=== PATIENT | female | born 1975 | race Caucasian/White ===

== ENCOUNTER → 2018-08-26 | Outpatient (CLI) | payer OTHER ==
[~2018-08-26] MED LIST: ESTR2TAB26 PO; LEVO-3 PO; PROG1.3G2 PV
--- NOTE | 2018-08-26 16:15 | RADIOLOGY IMAGING REPORT ---
FACILITY: [facility] [place] PATIENT NAME: Fatou Armenta : 1975 MR: [id number] V: [id number] EXAM DATE: ORDERING PHYSICIAN: MADDI ACUÑA TECHNOLOGIST: Location: [facility] Patient: Fatou Armenta : 1975 Visit/Account:[id number] Date of Sevice: 08/26/2018 ADDENDUM #1 The endometrial double thickness is 1.06 cm not millimeters. Report Dictated By: Stephanie Benson MD at 08/27/2018 10:36 AM Report E-Signed By: Stephanie Benson MD at 08/27/2018 10:36 AM ORIGINAL REPORT [facility] TRANSVAGINAL NON-OB HISTORY: ENCOUNTER FOR OTHER PROCREATIVE MANAGEMENT TECHNIQUE: Transvaginal ultrasound pelvis. COMPARISON: None. FINDINGS: Uterus: ; 27.5 cm length x 3.7 cm AP x cm transverse. Myometrium: Limited sagittal views of the uterus are grossly unremarkable. Endometrium: Unremarkable; double thickness 1.06 mm. Cervix: Grossly negative. Ovaries: Right - 2.23 x 1.73 x 2.2 cm. Two follicles were measured in the right ovary measuring 5.9 mm, 4 mm and 7.8 mm Left - 1.6 x 1.91 x 0.95 cm. Two follicles were measured in the left ovary measuring 5.4 mm and 6.5 mm Blood flow is documented in each ovary by duplex Doppler ultrasound. Adnexa: Grossly unremarkable. Free pelvic fluid: None. IMPRESSION: Three follicles were measured in the right ovary and two follicles were measured in the left ovary as detailed above Report Dictated By: Stephanie Benson MD at 08/26/2018 4:05 PM Report E-Signed By: Stephanie Benson MD at 08/26/2018 4:11 PM WSN:[id number]
== END ==
LOC: RAD 08:20
PROVIDERS: ATTEND Obstetrics & Gynecology
DX: Z31.89 Encounter for other procreative management (principal)

== ENCOUNTER → 2018-12-01 | Outpatient (CLI) | payer OTHER ==
[~2018-12-01] MED LIST changes: +ONDA4TAB97 PO
== END ==
LOC: LAB 09:36
PROVIDERS: ATTEND Nurse Practitioner Family
DX: Z32.00 Encounter for pregnancy test, result unknown (principal)
CPT/HCPCS: 36415; 84144; 84702

== ENCOUNTER → 2018-12-03 | Outpatient (CLI) | payer OTHER | LOC: LAB 08:36 | PROVIDERS: ATTEND Obstetrics & Gynecology Gynecology | DX: Z32.01 Encounter for pregnancy test, result positive (principal) | CPT/HCPCS: 36415; 84702 ==

== ENCOUNTER → 2018-12-06 | Outpatient (CLI) | payer OTHER | LOC: LAB 12:05 | PROVIDERS: ATTEND Nurse Practitioner Family | DX: Z32.01 Encounter for pregnancy test, result positive (principal) | CPT/HCPCS: 36415; 84702 ==

== ENCOUNTER → 2018-12-31 | Outpatient (CLI) | payer OTHER ==
[~2018-12-31] MED LIST changes: +ASPI-1471 PO; +ENOX40DI8 SQ; +FOLI0.4T56 PO; +PREN-127 PO; +PROG200C PV
[2018-12-31 10:09] LABS: PLATELET COUNT, AUTOMATED 304 K/uL (150-450)
== END ==
LOC: LAB 08:06
PROVIDERS: ATTEND Obstetrics & Gynecology
DX: Z34.81 Encounter for supervision of other normal pregnancy, first trimester (principal)
CPT/HCPCS: 36415; 81001; 84443; 85025; 86592; 86703; 86762; 86850; 86900; 86901; 87088; 87340

== ENCOUNTER → 2019-02-15 | Outpatient (CLI) | payer OTHER | LOC: LAB 08:48 | PROVIDERS: ATTEND Obstetrics & Gynecology | DX: E03.9 Hypothyroidism, unspecified (principal); O09.92 Supervision of high risk pregnancy, unspecified, second trimester | CPT/HCPCS: 36415; 84443; 87491; 87591 ==

== ENCOUNTER → 2019-05-10 | Outpatient (CLI) | payer OTHER ==
[~2019-05-10] MED LIST changes: +DIPH0.5S2 IM
[2019-05-10 12:12] LABS: PLATELET COUNT, AUTOMATED 279 K/uL (150-450)
== END ==
LOC: LAB 08:41
PROVIDERS: ATTEND Obstetrics & Gynecology
DX: O09.92 Supervision of high risk pregnancy, unspecified, second trimester (principal); O99.282 Endocrine, nutritional and metabolic diseases complicating pregnancy, second trimester; E03.9 Hypothyroidism, unspecified
CPT/HCPCS: 36415; 82950; 84443; 85025